=== PATIENT | female | born 1950 | race African-American/Black ===

== ENCOUNTER 2016-05-22 17:57 | Emergency (ER) | payer MEDICARE, OTHER ==
[~2016-05-22] VITALS: Ht 165.1 cm; Wt 63.5 kg
[~2016-05-22 17:57] MED LIST: Pantoprazole Sodium Sesquihydr PO; TRAZ100T2 PO
[2016-05-22 18:15] VITALS: BP 169/82
== END 2016-05-22 21:15 | disposition home or self-care (01) ==
LOC: ER 18:05
DX: M70.21 Olecranon bursitis, right elbow (principal); E11.9 Type 2 diabetes mellitus without complications; I10 Essential (primary) hypertension
CPT/HCPCS: 10060

== ENCOUNTER 2018-02-11 10:47 | Emergency (ER) | payer MEDICARE ==
[~2018-02-11] VITALS: Ht 180.3 cm; Wt 68.0 kg
[2018-02-11 11:52] VITALS: BP 108/100
[2018-02-11] MEDS ORDERED: MEPERIDINE HCL (50 MG/ML) 1 ML VIAL IM ONE (12:45)
[2018-02-11] MEDS ORDERED: PROMETHAZINE HCL 25 MG/ML 1ML IM ONE (12:45)
== END 2018-02-11 13:16 | disposition home or self-care (01) ==
LOC: ER 10:50
DX: M54.5 Low back pain (principal); G89.29 Other chronic pain; E11.9 Type 2 diabetes mellitus without complications; I10 Essential (primary) hypertension; Z90.49 Acquired absence of other specified parts of digestive tract; Z79.899 Other long term (current) drug therapy; Z90.710 Acquired absence of both cervix and uterus
CPT/HCPCS: 96372; 99283; J2175; J2550

== ENCOUNTER 2018-02-21 20:28 | Emergency (ER) | payer MEDICARE, OTHER ==
[~2018-02-21] VITALS: Ht 165.1 cm; Wt 65.8 kg
[2018-02-21 20:33] VITALS: BP 229/107
== END 2018-02-21 23:56 | disposition left against medical advice (07) ==
LOC: EDBD 20:28 → ER 20:31
DX: E11.649 Type 2 diabetes mellitus with hypoglycemia without coma (principal); E78.5 Hyperlipidemia, unspecified; I10 Essential (primary) hypertension; Z90.710 Acquired absence of both cervix and uterus; Z90.89 Acquired absence of other organs; Z53.29 Procedure and treatment not carried out because of patient's decision for other reasons
CPT/HCPCS: 94761

== ENCOUNTER 2018-07-25 15:08 | Emergency (ER) | payer OTHER ==
[~2018-07-25] VITALS: Ht 162.6 cm; Wt 68.0 kg
[2018-07-25 16:12] LABS: Alanine Aminotransferase 21 U/L (13-56); Albumin 4.1 g/dL (3.4-5.0); Anion Gap 12 (5-15); Aspartate Aminotransferase 7 U/L (15-37); BUN/Creatinine Ratio 20.1; Blood Urea Nitrogen 29 mg/dL (7-18); Calcium 8.9 mg/dL (8.5-10.1); Carbon Dioxide 23 mmol/L (21-32); Chloride 97 mmol/L (98-107); GFR African American 47 mL/min; GFR Non-African American 38 mL/min; Potassium 5.1 mmol/L (3.5-5.1); Sodium 132 mmol/L (136-145)
[2018-07-25 16:50] LABS: Alkaline Phosphatase 153 U/L (45-117); Bilirubin, Total 0.4 mg/dL (0.2-1.0); Total Protein 7.9 g/dL (6.4-8.2)
[2018-07-25 16:51] LABS: Glucose 595 mg/dL (74-106)
[2018-07-25 17:13] LABS: White Blood Cell 7.5 10^3/uL (4.4-10.8)
[2018-07-25 17:14] LABS: Lymphocytes % (auto) 17.1 % (10.0-50.0); Neutrophils % (auto) 76.8 % (37.0-80.0)
[2018-07-25 17:15] LABS: Basophils # (auto) 0.7 uL; Basophils % (auto) 0.7 % (0.0-2.0); Eosinophils # (auto) 1.5 uL; Eosinophils % (auto) 1.5 % (0.0-7.0); Hematocrit 41.3 % (36.0-46.0); Hemoglobin 13.7 g/dL (12.2-16.2); Lymphocytes # (auto) 1.3 uL; Mean Corpuscular Hemoglobin 28.5 pg (28.0-32.0); Mean Corpuscular Hgb Conc. 33.1 g/dL (32.0-36.0); Mean Corpuscular Volume 86.2 fL (80.0-100.0); Monocytes # (auto) 0.3 uL; Monocytes % (auto) 3.9 % (0.0-12.0); Neutrophils # (auto) 5.8 uL; Nucleated Red Blood Cells % 0.1 %; Platelet Count (auto) 304 10^3/uL (140-450); Red Blood Cells 4.79 10^6/uL (4.0-5.20); Red Cell Distribution Width 13.2 % (11.8-14.3)
[2018-07-25] MEDS ORDERED: SODIUM CHLORIDE 0.9% 1,000 ML IV ONE (17:45)
[2018-07-25 19:54] LABS: INR 0.91 (0.9-1.15); Partial Thromboplastin Time 24.4 sec (23.78-33.04); Prothrombin Time 9.8 sec (9.27-12.13)
[2018-07-25 20:02] LABS: Alcohol, Urine < 3.0 mg/dL (0-5); Amphetamine Screen, Urine NEGATIVE (NEGATIVE); Barbiturate Scree,Urine NEGATIVE (NEGATIVE); Benzodiazephine Screen, Urine NEGATIVE (NEGATIVE); Cannabinoid Screen, Urine NEGATIVE (NEGATIVE); Cocaine Screen, Urine NEGATIVE (NEGATIVE); Opiate Scree,Urine NEGATIVE (NEGATIVE); Phencyclidine Screen, Urine NEGATIVE (NEGATIVE)
[2018-07-25 20:25] LABS: Urine Bacteria FEW /hpf (None Seen); Urine Blood Negative /uL (Negative); Urine Specific Gravity 1.025 (1.001-1.035); Urine WBC 11 /hpf (0 - 5)
[2018-07-25 21:33] VITALS: BP 138/74
[2018-07-25] MEDS ORDERED: cefTRIAXone 1GM/50ML D5W 50 ML IV ONE (21:45)
== END 2018-07-25 22:29 | disposition home or self-care (01) ==
LOC: EDBD 15:08 → ER 15:11
DX: N39.0 Urinary tract infection, site not specified (principal); E11.65 Type 2 diabetes mellitus with hyperglycemia; G89.29 Other chronic pain; M54.9 Dorsalgia, unspecified; Z90.710 Acquired absence of both cervix and uterus; Z90.89 Acquired absence of other organs
CPT/HCPCS: 36415; 70450; 71045; 80053; 80307; 81001; 82962; 83735; 84484; 85025; 85610; 85730; 93005; 94761; 96361; 96365; 99284; J0696; J7030

== ENCOUNTER 2018-07-30 14:20 | Inpatient (IN) | payer OTHER ==
[~2018-07-30] VITALS: Ht 172.7 cm; Wt 68.8 kg
[2018-07-30 15:21] LABS: Basophils # (auto) 0.1 uL; Basophils % (auto) 0.9 % (0.0-2.0); Eosinophils # (auto) 0.1 uL; Eosinophils % (auto) 1.3 % (0.0-7.0); Hematocrit 40.4 % (36.0-46.0); Hemoglobin 13.3 g/dL (12.2-16.2); Lymphocytes # (auto) 1.3 uL; Lymphocytes % (auto) 17.3 % (10.0-50.0); Mean Corpuscular Hemoglobin 28.8 pg (28.0-32.0); Mean Corpuscular Hgb Conc. 32.9 g/dL (32.0-36.0); Mean Corpuscular Volume 87.6 fL (80.0-100.0); Monocytes # (auto) 0.4 uL; Monocytes % (auto) 4.9 % (0.0-12.0); Neutrophils # (auto) 5.5 uL; Neutrophils % (auto) 75.6 % (37.0-80.0); Nucleated Red Blood Cells % 0.1 %; Platelet Count (auto) 319 10^3/uL (140-450); Red Blood Cells 4.62 10^6/uL (4.0-5.20); Red Cell Distribution Width 13.6 % (11.8-14.3); White Blood Cell 7.3 10^3/uL (4.4-10.8)
[2018-07-30 15:38] LABS: Chloride 99 mmol/L (98-107); Potassium 4.6 mmol/L (3.5-5.1); Sodium 132 mmol/L (136-145)
[2018-07-30 15:44] LABS: Alanine Aminotransferase 20 U/L (13-56); Alkaline Phosphatase 123 U/L (45-117); Anion Gap 10 (5-15); Aspartate Aminotransferase 10 U/L (15-37); BUN/Creatinine Ratio 24.5; Bilirubin, Total 0.4 mg/dL (0.2-1.0); Blood Urea Nitrogen 45 mg/dL (7-18); Calcium 8.9 mg/dL (8.5-10.1); Carbon Dioxide 23 mmol/L (21-32); GFR African American 35 mL/min; GFR Non-African American 29 mL/min; Magnesium 2.8 mg/dL (1.6-2.6); Total Protein 7.9 g/dL (6.4-8.2)
[2018-07-30] MEDS ORDERED: SODIUM CHLORIDE 0.9% 1,000 ML IV ONE ×2 (15:54)
[2018-07-30 15:57] LABS: Glucose 421 mg/dL (74-106)
[2018-07-30] MEDS ORDERED: InsuLIN REG 1unit/0.01ml Soln (100units/ml) IV ONE (16:00)
[2018-07-30 19:59] LABS: Urine Bacteria NONE SEEN /hpf (None Seen); Urine Blood Negative /uL (Negative); Urine Hyaline Cast FEW /lpf (0 - 2); Urine Specific Gravity 1.022 (1.001-1.035); Urine WBC 6 /hpf (0 - 5)
[2018-07-31] MEDS ORDERED: SODIUM CHLORIDE 0.9% 1,000 ML IV SCH ×2 (05:06→14:44)
[2018-07-31] MEDS ORDERED: MORPHINE SULFATE 4 MG/ML SYR/VIAL IV PRN (05:15)
[2018-07-31] MEDS ORDERED: ASPirin-EC 81 mg tab PO ONE (05:15)
[2018-07-31] MEDS ORDERED: ONDANSETRON HCL 4 MG/2 ML VIAL IV PRN (05:15)
[2018-07-31] MEDS ORDERED: NITROGLYCERIN 0.4 MG SL TAB SL PRN (05:15)
[2018-07-31] MEDS ORDERED: DEXTROSE (50%) 50ML SYRG IV PRN ×3 (05:15→19:00)
[2018-07-31] MEDS ORDERED: MORPHINE SULF INJ 2 MG/ML SYRINGE 1ML IV PRN (05:15)
[2018-07-31] MEDS ORDERED: ACCU-CHEK COMFORT CURVE STRIP VI SCH (07:00)
[2018-07-31] MEDS ORDERED: InsuLIN REG 1unit/0.01ml Soln (100units/ml) SC SCH ×2 (07:00→22:00)
--- NOTE | 2018-07-31 08:05 | NUR ---
Telemetry admit from ER AISLINN CALVILLO admitted to Telemetry unit after SBAR received. AAOX3, breathing even unlabored S1, S2, abd soft nontender, twitching noted to left side of her face, c/o of difficulty speech. Patient oriented to Tucker Maddox RN primary RN, unit, room, bed, and unit policies regarding patient care and visiting hours. Patient now on continuous telemetry monitoring, tele box # 9 and telemetry reading on arrival to unit is SINUS RHYTHM 86. Patient placed on bedside oxygen, weighed by bedscale and encouraged to call if they need something. All questions and concerns addressed, patient verbalized understanding. Bed locked in the lowest position,call light within easy reach, will continue to monitor.
--- NOTE | 2018-07-31 08:20 | NUR ---
PT OFF UNIT FOR MRI VIA W/C. NO ACUTE DISTRESS NOTED AT DEPARTURE.
[2018-07-31 08:39] VITALS: BP 163/90
[2018-07-31] MEDS ORDERED: LABETALOL HCL 5 MG/ML ML 20ML VIAL IV ONE (08:45)
[2018-07-31] MEDS: ASPirin-EC 81 mg tab PO SCH (09:21)
[2018-07-31] MEDS: ENOXAPARIN SOD 30 MG/0.3 ML SYRINGE SC SCH (09:22)
[2018-07-31 09:50] LABS: Basophils # (auto) 0.1 uL; Basophils % (auto) 0.9 % (0.0-2.0); Eosinophils # (auto) 0.1 uL; Eosinophils % (auto) 0.9 % (0.0-7.0); Hematocrit 38.9 % (36.0-46.0); Hemoglobin 12.7 g/dL (12.2-16.2); Lymphocytes # (auto) 1.1 uL; Lymphocytes % (auto) 12.8 % (10.0-50.0); Mean Corpuscular Hemoglobin 28.5 pg (28.0-32.0); Mean Corpuscular Hgb Conc. 32.6 g/dL (32.0-36.0); Mean Corpuscular Volume 87.6 fL (80.0-100.0); Monocytes # (auto) 0.3 uL; Monocytes % (auto) 3.7 % (0.0-12.0); Neutrophils # (auto) 6.8 uL; Neutrophils % (auto) 81.7 % (37.0-80.0); Platelet Count (auto) 305 10^3/uL (140-450); Red Blood Cells 4.44 10^6/uL (4.0-5.20); Red Cell Distribution Width 13.4 % (11.8-14.3); White Blood Cell 8.3 10^3/uL (4.4-10.8)
[2018-07-31 10:06] LABS: Potassium 4.5 mmol/L (3.5-5.1)
[2018-07-31 10:24] LABS: BUN/Creatinine Ratio 24.7
[2018-07-31 10:30] VITALS: BP 163/90
[2018-07-31] MEDS ORDERED: InsuLIN R (HUMAN) 100 UNITS in SODIUM CHL 0.9% 99 ML IV SCH ×2 (10:44→15:45)
[2018-07-31 11:06] LABS: Magnesium 2.4 mg/dL (1.6-2.6)
[2018-07-31] MEDS: SODIUM CHLORIDE 0.9% 1,000 ML IV SCH ×3 (11:12→17:13)
--- NOTE | 2018-07-31 11:13 | NUR ---
DR. ROY AT BEDSIDE. STATED PT CAN STAY TELE UNTIL NEXT BMP RESULT.
[2018-07-31 11:18] LABS: Phosphorus 3.4 mg/dL (2.5-4.90)
[2018-07-31 12:06] VITALS: BP 103/54
[2018-07-31] MEDS: ACCU-CHEK COMFORT CURVE STRIP VI SCH ×5 (12:28→20:00)
--- NOTE | 2018-07-31 12:28 | NUR ---
BS 297.
--- NOTE | 2018-07-31 12:40 | NUR ---
NOTIFIED HOUSE SUP MRS. ROJAS THAT DR. ROY WOULD LIKE TO TRANSFER PT TO [facility].
--- NOTE | 2018-07-31 14:05 | NUR ---
INSULIN DRIP Insulin drip 4ml/hr(1:1) is started at 4 ml per hour with blood sugar 314 as per protocol(Algorithm#1) via new IV 22g in right forearm. Continue to monitor and awaits for ICU bed. Will continue to monitor.
[2018-07-31 14:30] LABS: BUN/Creatinine Ratio 26.5; Calcium 8.5 mg/dL (8.5-10.1); Potassium 4.4 mmol/L (3.5-5.1)
--- NOTE | 2018-07-31 15:00 | NUR ---
ANTOINETTE 277 @ 7193.
--- NOTE | 2018-07-31 15:45 | NUR ---
INSULIN DRIP NOW INFUSING @ 3ML/HR. PT RESTING IN BED, NO S/S OF ACUTE DISTRESS. WILL CONTINUE CARE.
[2018-07-31 16:22] VITALS: BP 141/74
--- NOTE | 2018-07-31 16:40 | NUR ---
Dr. Sullivan paged regarding patient c/o of jaw pain, awaiting to call back.
[2018-07-31] MEDS ORDERED: CYCLOBENZAPRINE HCL 10 MG TAB PO ONE (16:45)
--- NOTE | 2018-07-31 16:46 | NUR ---
Received a call from Dr. Sullivan with new order, noted and carried out.
--- NOTE | 2018-07-31 17:00 | NUR ---
BS 185, CHANGE INSULIN DRIP TO 2ML/HR. WILL CONTINUE TO MONITOR.
[2018-07-31 17:33] LABS: BUN/Creatinine Ratio 24.5; Calcium 8.6 mg/dL (8.5-10.1); Potassium 4.4 mmol/L (3.5-5.1)
--- NOTE | 2018-07-31 18:30 | NUR ---
UPDATE DR. ROY 1700 BMP RESULTS. OBTAINED NEW ORDER: STOP INSULIN GTT, GIVE LANTUS 20UNIT SUB X1, START AGGRESSIVE INSULIN SLIDING SCALE, DIABETIC DIET, DOWNGRADE TO TELE, REPEAT BMP AT 1999 CALL MD WITH RESULTS, CONTINUE NS @ 100ML/HR. ORDERS READ BACK AND VERIFIED, WILL PUT IN ORDERS.
[2018-07-31] MEDS ORDERED: INSULIN LANTUS (GLARGINE) 1 /0.01ml (100units/ml) SC ONE (19:00)
--- NOTE | 2018-07-31 19:15 | NUR ---
Opening Shift Note Received report from geno Ceballos RN. Assumed care of patient, awake and alert. No S/S of distress/SOB or pain. Instructed on POC and to call for assist PRN, will continue to monitor for changes Q1hr and PRN. Bed placed in lowest position, bed alarm turned on and call light withn reach.
--- NOTE | 2018-07-31 19:54 | NUR ---
CARE ENDORSED TO KENROY GORDON. RN AWARE DR. ROY REQUESTS RN TO CALL HIM WITH 2000 BMP RESULTS.
[2018-07-31 20:00] VITALS: BP 152/90
[2018-07-31] MEDS: InsuLIN REG 1unit/0.01ml Soln (100units/ml) SC SCH (20:43)
[2018-07-31 21:59] LABS: BUN/Creatinine Ratio 25.6; Calcium 8.5 mg/dL (8.5-10.1); Potassium 4.6 mmol/L (3.5-5.1)
[2018-07-31 22:00] VITALS: BP 152/90
[2018-07-31] MEDS ORDERED: ATORVASTATIN 20 MG TAB PO SCH (22:00)
[2018-08-01] MEDS: ACCU-CHEK COMFORT CURVE STRIP VI SCH ×4 (00:28→11:26)
[2018-08-01] MEDS: InsuLIN REG 1unit/0.01ml Soln (100units/ml) SC SCH ×4 (00:29→11:26)
[2018-08-01] MEDS: SODIUM CHLORIDE 0.9% 1,000 ML IV SCH ×3 (00:30→12:44)
[2018-08-01 05:08] VITALS: BP 102/53
[2018-08-01 07:12] LABS: BUN/Creatinine Ratio 23.7; Potassium 4.1 mmol/L (3.5-5.1)
--- NOTE | 2018-08-01 07:55 | NUR ---
Opening Shift Note Assumed care of patient, awake and alert. No S/S of distress/SOB or pain. Instructed on POC and to call for assist PRN, will continue to monitor for changes Q1hr and PRN.
[2018-08-01 08:00] VITALS: BP 139/80
[2018-08-01 09:00] VITALS: BP 139/80
[2018-08-01] MEDS: ASPirin-EC 81 mg tab PO SCH (09:30)
[2018-08-01] MEDS: ENOXAPARIN SOD 30 MG/0.3 ML SYRINGE SC SCH (09:31)
--- NOTE | 2018-08-01 09:35 | NUR ---
DR. ROY AT BEDSIDE. PLAN OF CARE DISCUSSED WITH PT.
--- NOTE | 2018-08-01 11:25 | NUR ---
CALLED DR. ROY PER DR. MCARTHUR REGARDING EEG OUTPATIENT. DR. ROY STATED HE WILL ARRANGE FOR PT TO HAVE MRI ON FRIDAY. Addendum: 08/01/18 at 1305 by Tucker Maddox RN RN CALL DR. ROY PER DR. BLACK REGARDING EEG OUTPATIENT. DR. ROY STATED HE WILL ARRANGE FOR TP TO HAVE EEG ON FRIDAY.
--- NOTE | 2018-08-01 13:05 | NUR ---
Discharge instructions given as ordered. Encourage to follow up with PCP, Kassandra to arrange per Dr. Sullivan. All questions and concerns addressed. Patient verbalized understanding. Medication reconciliation form completed and copy given to patient. IV removed with catheter intact, pressure dressing applied. Telemetry unit returned to [facility]. Patient taken to vehicle via wheelchair with all personal belongings, accompanied by staff and family member. No distress noted at time of departure.
== END 2018-08-01 13:08 | disposition home or self-care (01) | DRG 682 ==
LOC: EDBD 14:20 → ER 14:20 → TELE 07-31 05:30 → TELE-WESTW 07-31 08:07
PROVIDERS: ADMIT Hospitalist; ATTEND Hospitalist
DX: N17.9 Acute kidney failure, unspecified (principal); E11.10 Type 2 diabetes mellitus with ketoacidosis without coma; G45.9 Transient cerebral ischemic attack, unspecified; I10 Essential (primary) hypertension; I67.2 Cerebral atherosclerosis; Z79.4 Long term (current) use of insulin; Z82.49 Family history of ischemic heart disease and other diseases of the circulatory system; Z83.3 Family history of diabetes mellitus; Z90.710 Acquired absence of both cervix and uterus; Z90.49 Acquired absence of other specified parts of digestive tract
CPT/HCPCS: 36415; 36600; 70450; 70551; 71045; 80048; 80053; 80061; 81001; 82010; 82805; 82962; 83036; 83735; 83930; 84100; 84484; 85025; 87086; 93005; 93306; 94761; 96361; 96374; G0378; J1815

== ENCOUNTER 2018-09-01 17:13 | Emergency (ER) | payer OTHER ==
[~2018-09-01] VITALS: Ht 165.1 cm; Wt 65.8 kg
[2018-09-01 19:10] VITALS: BP 160/68
== END 2018-09-01 20:41 | disposition home or self-care (01) ==
LOC: EDUNIT# 17:13 → EDBD 17:13 → ER 17:18
DX: S30.0XXA Contusion of lower back and pelvis, initial encounter (principal); S70.11XA Contusion of right thigh, initial encounter; G89.4 Chronic pain syndrome; E11.9 Type 2 diabetes mellitus without complications; I10 Essential (primary) hypertension; Z90.710 Acquired absence of both cervix and uterus; W10.8XXA Fall (on) (from) other stairs and steps, initial encounter; Y93.89 Activity, other specified; Y92.254 Theater (live) as the place of occurrence of the external cause; Y99.8 Other external cause status
CPT/HCPCS: 72131; 73130

== ENCOUNTER 2018-10-24 19:27 | Inpatient (IN) | payer OTHER ==
[~2018-10-24] VITALS: Ht 157.5 cm; Wt 63.5 kg
[2018-10-24 22:14] LABS: Basophils # (auto) 0.1 uL; Basophils % (auto) 0.6 % (0.0-2.0); Eosinophils # (auto) 0.2 uL; Eosinophils % (auto) 2.1 % (0.0-7.0); Hematocrit 43.4 % (36.0-46.0); Hemoglobin 14.4 g/dL (12.2-16.2); Lymphocytes % (auto) 9.4 % (10.0-50.0); Mean Corpuscular Hemoglobin 28.3 pg (28.0-32.0); Mean Corpuscular Hgb Conc. 33.2 g/dL (32.0-36.0); Mean Corpuscular Volume 85.4 fL (80.0-100.0); Monocytes # (auto) 0.4 uL; Monocytes % (auto) 3.6 % (0.0-12.0); Neutrophils # (auto) 9.1 uL; Neutrophils % (auto) 84.3 % (37.0-80.0); Platelet Count (auto) 383 10^3/uL (140-450); Red Blood Cells 5.09 10^6/uL (4.0-5.20); Red Cell Distribution Width 12.6 % (11.8-14.3); White Blood Cell 10.8 10^3/uL (4.4-10.8)
[2018-10-24] MEDS ORDERED: InsuLIN REG 1unit/0.01ml Soln (100units/ml) IV ONE (22:15)
[2018-10-24] MEDS ORDERED: SODIUM CHLORIDE 0.9% 1,000 ML IV ONE (22:15)
[2018-10-24 22:24] LABS: INR < 0.93 (0.9-1.15); Partial Thromboplastin Time 22.2 sec (23.64-32.05)
[2018-10-24 22:35] LABS: Chloride 96 mmol/L (98-107); Potassium 5.5 mmol/L (3.5-5.1); Sodium 132 mmol/L (136-145)
[2018-10-24 22:45] LABS: Alanine Aminotransferase 21 U/L (13-56); Albumin 4.1 g/dL (3.4-5.0); Alkaline Phosphatase 211 U/L (45-117); Anion Gap 10 (5-15); Aspartate Aminotransferase 19 U/L (15-37); BUN/Creatinine Ratio 34.3; Bilirubin, Total 0.4 mg/dL (0.2-1.0); Blood Urea Nitrogen 62 mg/dL (7-18); Calcium 9.5 mg/dL (8.5-10.1); Carbon Dioxide 26 mmol/L (21-32); GFR African American 36 mL/min; GFR Non-African American 30 mL/min; Magnesium 2.7 mg/dL (1.6-2.6); Total Protein 8.9 g/dL (6.4-8.2)
[2018-10-24 22:49] LABS: Glucose 613 mg/dL (74-106)
[2018-10-24 23:15] LABS: Urine Bacteria NONE SEEN /hpf (None Seen); Urine Blood 1+ /uL (Negative); Urine Specific Gravity 1.017 (1.001-1.035); Urine WBC 1 /hpf (0 - 5)
[2018-10-24 23:40] LABS: Alcohol, Urine < 3.0 mg/dL (0-5); Amphetamine Screen, Urine NEGATIVE (NEGATIVE); Barbiturate Scree,Urine NEGATIVE (NEGATIVE); Benzodiazephine Screen, Urine NEGATIVE (NEGATIVE); Cannabinoid Screen, Urine NEGATIVE (NEGATIVE); Cocaine Screen, Urine NEGATIVE (NEGATIVE); Opiate Scree,Urine NEGATIVE (NEGATIVE); Phencyclidine Screen, Urine NEGATIVE (NEGATIVE)
[2018-10-25] MEDS ORDERED: D5W/SOD CHLO 0.9% 1,000 ML IV ONE ×2 (00:15)
[2018-10-25] MEDS ORDERED: SODIUM CHLORIDE 0.9% 1,000 ML IV SCH ×3 (00:22→04:00)
[2018-10-25] MEDS ORDERED: InsuLIN R (HUMAN) 100 UNITS in SODIUM CHL 0.9% 99 ML IV SCH (00:22)
[2018-10-25] MEDS ORDERED: DEXTROSE (50%) 50ML SYRG IV PRN ×2 (00:30→03:30)
[2018-10-25] MEDS: D5W/SOD CHLO 0.9% 1,000 ML IV SCH ×3 (00:30→08:30)
[2018-10-25] MEDS ORDERED: InsuLIN REG 1unit/0.01ml Soln (100units/ml) ONE (01:17)
[2018-10-25] MEDS: ACCU-CHEK COMFORT CURVE STRIP VI SCH ×11 (01:41→23:50)
[2018-10-25 02:20] LABS: Calcium 8.6 mg/dL (8.5-10.1); Potassium 4.4 mmol/L (3.5-5.1)
[2018-10-25 02:22] LABS: BUN/Creatinine Ratio 38.8
[2018-10-25] MEDS ORDERED: MORPHINE SULF INJ 2 MG/ML SYRINGE 1ML IV PRN (03:30)
[2018-10-25] MEDS ORDERED: NITROGLYCERIN 0.4 MG SL TAB SL PRN (03:30)
[2018-10-25 04:28] LABS: Basophils # (auto) 0.1 uL; Basophils % (auto) 0.8 % (0.0-2.0); Eosinophils # (auto) 0.3 uL; Eosinophils % (auto) 4.1 % (0.0-7.0); Hematocrit 34.6 % (36.0-46.0); Hemoglobin 11.6 g/dL (12.2-16.2); Lymphocytes # (auto) 2.1 uL; Lymphocytes % (auto) 24.4 % (10.0-50.0); Mean Corpuscular Hemoglobin 28.5 pg (28.0-32.0); Mean Corpuscular Hgb Conc. 33.6 g/dL (32.0-36.0); Mean Corpuscular Volume 84.8 fL (80.0-100.0); Monocytes # (auto) 0.4 uL; Neutrophils # (auto) 5.6 uL; Neutrophils % (auto) 65.7 % (37.0-80.0); Platelet Count (auto) 334 10^3/uL (140-450); Red Blood Cells 4.08 10^6/uL (4.0-5.20); Red Cell Distribution Width 12.8 % (11.8-14.3); White Blood Cell 8.6 10^3/uL (4.4-10.8)
[2018-10-25 05:04] LABS: Anion Gap 14 (5-15); Calcium 8.6 mg/dL (8.5-10.1); Carbon Dioxide 21 mmol/L (21-32); Chloride 109 mmol/L (98-107); GFR African American 46 mL/min; GFR Non-African American 38 mL/min; Glucose 306 mg/dL (74-106); Potassium 3.8 mmol/L (3.5-5.1); Sodium 144 mmol/L (136-145)
[2018-10-25 05:06] LABS: BUN/Creatinine Ratio 36.3; Blood Urea Nitrogen 53 mg/dL (7-18)
[2018-10-25] MEDS: InsuLIN REG 1unit/0.01ml Soln (100units/ml) SC SCH ×4 (06:00→23:51)
[2018-10-25 07:12] LABS: BUN/Creatinine Ratio 39.8; Calcium 8.9 mg/dL (8.5-10.1); Potassium 3.7 mmol/L (3.5-5.1)
--- NOTE | 2018-10-25 07:45 | NUR ---
Telemetry admit from ER AISLINN CALVILLO admitted to Telemetry unit after SBAR received. Patient oriented to Marnie aldana RN, unit, room, bed, and unit policies regarding patient care and visiting hours. Patient now on continuous telemetry monitoring, tele box # 34 and telemetry reading on arrival to unit is SR in the 90's. Patient weighed by bedscale and encouraged to call if they need something. All questions and concerns addressed, patient verbalized understanding.
[2018-10-25 09:00] VITALS: BP 92/59
[2018-10-25] MEDS: PANTOPRAZOLE 40 MG/10 ML VIAL INJ IV SCH (10:00)
[2018-10-25] MEDS: ENOXAPARIN SOD 30 MG/0.3 ML SYRINGE SC SCH (10:20)
--- NOTE | 2018-10-25 10:39 | NUR ---
SPOKE TO DR ROY, ORDERS RECEIVED, WILL PLACE AND CARRY OUT.
[2018-10-25] MEDS: SOD CHL 0.45% 1,000 ML IV SCH ×2 (11:02→15:43)
[2018-10-25 13:00] VITALS: BP 163/83
[2018-10-25 14:35] LABS: BUN/Creatinine Ratio 36.7; Calcium 8.6 mg/dL (8.5-10.1); Potassium 4.5 mmol/L (3.5-5.1)
[2018-10-25 17:00] VITALS: BP 160/89
--- NOTE | 2018-10-25 17:56 | NUR ---
ELEVATED BLOOD PRESSURE. SPOKE WITH HERB COUNSELOR HOSPITALIST. ORDERS RECEIVED, WILL PLACE AND CARRY OUT.
[2018-10-25] MEDS: LABETALOL HCL 5 MG/ML ML 20ML VIAL IV PRN (18:45)
[2018-10-25 19:30] LABS: Calcium 8.6 mg/dL (8.5-10.1); Potassium 3.9 mmol/L (3.5-5.1)
[2018-10-25 19:41] LABS: BUN/Creatinine Ratio 36.4
--- NOTE | 2018-10-25 20:00 | NUR ---
OPENING NOTE RECEIVED REPORT FROM HEAVEN RN. ASSUMING ROLE OF CARE OF PATIENT AT THIS TIME. FAMILY AT BEDSIDE AND PATIENT IS CRYING AT THIS TIME. PATIENT IS NONVERBAL AND UNABLE TO OBTAIN INFORMATION AT THIS TIME. EDUCATED PATIENT AND FAMILY OF CURRENT PLAN OF CARE. FAMILY VERBALIZED UNDERSTANDING. ATTEMPTED TO REORIENT PATIENT BUT UNSUCCESSFUL. WILL ATTEMPT AT A LATER TIME. BED LOWERED, CALL LIGHT WITHIN REACH, AND PATIENT WILL BE ROUNDED ON EVERY HOUR AND NEEDED.
--- NOTE | 2018-10-25 20:00 | NUR ---
PATIENT GIVEN PAIN MEDICINE PATIENT CRYING AND BP REMAINS ELEVATED AT 164/119. GAVE PATIENT PAIN MEDICINE AND BP RECHECKED AND BP REMAINS AT 159/74. PATIENT NO LONGER CRYING AND RESTING COMFORTABLY. WILL CONTINUE TO MONITOR.
[2018-10-25] MEDS: ONDANSETRON HCL 4 MG/2 ML VIAL IV PRN (20:06)
[2018-10-25] MEDS: MORPHINE SULFATE 4 MG/ML SYR/VIAL IV PRN (20:07)
[2018-10-25 21:51] VITALS: BP 159/74
[2018-10-26] VITALS (11 sets, daily range): BP systolic 133–205; BP diastolic 77–102
[2018-10-26] MEDS: SOD CHL 0.45% 1,000 ML IV SCH ×4 (00:05→20:05)
[2018-10-26] MEDS: LABETALOL HCL 5 MG/ML ML 20ML VIAL IV PRN ×2 (00:59→17:02)
--- NOTE | 2018-10-26 03:00 | NUR ---
ROUNDED ON PATIENT AT THIS TIME PATIENT APPEARS MORE ALERT AND ORIENTED AND USING FULL SENTENCES. SPEECH IS STILL GARBLED AND BROKEN BUT SENTENCES ARE COMPLETE THOUGHTS. PATIENT REQUESTING JUICE AT THIS TIME. PATIENT GIVEN JUICE AND PATIENT IS RESTING COMFORTABLY AT BEDSIDE. WILL CONTINUE TO MONITOR.
[2018-10-26] MEDS: MORPHINE SULFATE 4 MG/ML SYR/VIAL IV PRN ×2 (05:41→16:12)
[2018-10-26] MEDS: ACCU-CHEK COMFORT CURVE STRIP VI SCH ×4 (06:05→23:52)
[2018-10-26] MEDS: InsuLIN REG 1unit/0.01ml Soln (100units/ml) SC SCH ×4 (06:05→23:52)
[2018-10-26 06:53] LABS: Basophils # (auto) 0.1 uL; Basophils % (auto) 0.8 % (0.0-2.0); Eosinophils # (auto) 0.3 uL; Eosinophils % (auto) 3.8 % (0.0-7.0); Hematocrit 35.1 % (36.0-46.0); Hemoglobin 11.7 g/dL (12.2-16.2); Lymphocytes # (auto) 2.3 uL; Lymphocytes % (auto) 29.7 % (10.0-50.0); Mean Corpuscular Hemoglobin 28.5 pg (28.0-32.0); Mean Corpuscular Hgb Conc. 33.4 g/dL (32.0-36.0); Mean Corpuscular Volume 85.3 fL (80.0-100.0); Monocytes # (auto) 0.3 uL; Monocytes % (auto) 4.3 % (0.0-12.0); Neutrophils # (auto) 4.8 uL; Neutrophils % (auto) 61.4 % (37.0-80.0); Nucleated Red Blood Cells % 0.1 %; Platelet Count (auto) 326 10^3/uL (140-450); Red Blood Cells 4.12 10^6/uL (4.0-5.20); Red Cell Distribution Width 12.7 % (11.8-14.3); White Blood Cell 7.8 10^3/uL (4.4-10.8)
[2018-10-26 07:07] LABS: BUN/Creatinine Ratio 28.1; Calcium 8.7 mg/dL (8.5-10.1); Potassium 4.4 mmol/L (3.5-5.1)
[2018-10-26] MEDS: PANTOPRAZOLE 40 MG/10 ML VIAL INJ IV SCH (10:00)
[2018-10-26] MEDS: ENOXAPARIN SOD 30 MG/0.3 ML SYRINGE SC SCH (10:05)
[2018-10-26] MEDS: ONDANSETRON HCL 4 MG/2 ML VIAL IV PRN ×2 (13:30→16:41)
--- NOTE | 2018-10-26 19:49 | NUR ---
OPENING NOTE RECEIVED REPORT FROM DAYSHIFT RN. ASSUMING ROLE OF CARE OF PATIENT AT THIS TIME. PATIENT SHOWING NO SIGN OF DISTRESS, SHORTNESS OF BREATH, AND PATIENT DENIES ANY PAIN AT THIS TIME. PATIENT APPEARING MORE ALERT AND ORIENTED AT THIS TIME. SPEECH IS UNCLEAR BUT PATIENT IS SPEAKING IN FULL COMPLETE SENTENCES. PATIENT EDUCATED ON PLAN OF CARE FOR THE NIGHT AND PATIENT VERBALIZED UNDERSTANDING. BED LOWERED, CALL LIGHT WITHIN REACH, AND PATIENT WILL BE ROUNDED ON EVERY HOUR AND NEEDED.
[2018-10-27] MEDS: SOD CHL 0.45% 1,000 ML IV SCH ×2 (02:45→09:25)
[2018-10-27 05:00] VITALS: BP 160/82
[2018-10-27] MEDS: LABETALOL HCL 5 MG/ML ML 20ML VIAL IV PRN (05:40)
[2018-10-27] MEDS: ACCU-CHEK COMFORT CURVE STRIP VI SCH ×2 (06:16→11:32)
[2018-10-27] MEDS: InsuLIN REG 1unit/0.01ml Soln (100units/ml) SC SCH ×2 (06:22→11:32)
[2018-10-27 08:00] VITALS: BP 151/73
[2018-10-27 09:00] VITALS: BP 151/79
[2018-10-27] MEDS: PANTOPRAZOLE 40 MG/10 ML VIAL INJ IV SCH (10:00)
[2018-10-27] MEDS: ENOXAPARIN SOD 30 MG/0.3 ML SYRINGE SC SCH (11:09)
[2018-10-27 13:00] VITALS: BP 138/71
--- NOTE | 2018-10-27 15:26 | NUR ---
PATIENT DISCHARGED HOME WITH FAMILY. ALL IV ACCESS DISCONTINUED. TELEMETRY BOX REMOVED AND RETURNED TO [facility]. ALL DISCHARGE INSTRUCTIONS GIVEN. ALL DISCHARGE PAPERWORK SIGNED. WILLIS CATHETER REMOVED
== END 2018-10-27 15:30 | disposition home health service (06) | DRG 637 ==
LOC: EDBD 19:27 → ER 19:27 → TELE 19:28 → TELE-WESTW 10-25 08:22
PROVIDERS: ADMIT Hospitalist; ATTEND Hospitalist
DX: E11.10 Type 2 diabetes mellitus with ketoacidosis without coma (principal); G93.41 Metabolic encephalopathy; N17.9 Acute kidney failure, unspecified; E86.0 Dehydration; I70.0 Atherosclerosis of aorta; I10 Essential (primary) hypertension; W18.39XA Other fall on same level, initial encounter; E11.40 Type 2 diabetes mellitus with diabetic neuropathy, unspecified; Z90.710 Acquired absence of both cervix and uterus; Z90.49 Acquired absence of other specified parts of digestive tract; Z83.3 Family history of diabetes mellitus; Z82.49 Family history of ischemic heart disease and other diseases of the circulatory system; Y93.89 Activity, other specified; Y92.89 Other specified places as the place of occurrence of the external cause; Y99.8 Other external cause status; Z79.4 Long term (current) use of insulin; Z79.899 Other long term (current) drug therapy
CPT/HCPCS: 36415; 36600; 70450; 71045; 80048; 80053; 80307; 80320; 81001; 82010; 82805; 82962; 83036; 83735; 83880; 83930; 84100; 84443; 84484; 85025; 85379; 85610; 85730; 93005; 96361; 96365; 96366; 96375; G0378; J1815; J2405; J7042

== ENCOUNTER 2018-12-24 09:39 | Inpatient (IN) | payer OTHER ==
[~2018-12-24] VITALS: Ht 152.4 cm; Wt 63.5 kg
[2018-12-24 10:57] LABS: Basophils # (auto) 0.1 uL; Basophils % (auto) 0.9 % (0.0-2.0); Eosinophils # (auto) 0.2 uL; Eosinophils % (auto) 3.2 % (0.0-7.0); Hematocrit 33.2 % (36.0-46.0); Lymphocytes # (auto) 1.2 uL; Mean Corpuscular Hgb Conc. 33.3 g/dL (32.0-36.0); Monocytes # (auto) 0.4 uL; Monocytes % (auto) 5.6 % (0.0-12.0); Neutrophils # (auto) 4.7 uL; Neutrophils % (auto) 72.3 % (37.0-80.0); Nucleated Red Blood Cells % 0.1 %; Platelet Count (auto) 357 10^3/uL (140-450); Red Blood Cells 3.81 10^6/uL (4.0-5.20); White Blood Cell 6.5 10^3/uL (4.4-10.8)
[2018-12-24] MEDS ORDERED: DEXTROSE (50%) 50ML SYRG IV ONE (11:00)
[2018-12-24 11:15] LABS: Albumin 3.4 g/dL (3.4-5.0); Calcium 9.1 mg/dL (8.5-10.1); Potassium 3.9 mmol/L (3.5-5.1)
[2018-12-24 11:20] LABS: BUN/Creatinine Ratio 21.5; Bilirubin, Total 0.2 mg/dL (0.2-1.0); Total Protein 7.4 g/dL (6.4-8.2)
[2018-12-24] MEDS ORDERED: D5W/SOD CHL 0.45% 1,000 ML IV ONE (13:00)
[2018-12-24 13:44] LABS: Urine Bacteria FEW /hpf (None Seen); Urine Blood Negative /uL (Negative); Urine Budding Yeast MODERATE /hpf (None Seen); Urine Specific Gravity 1.006 (1.001-1.035); Urine WBC 25 /hpf (0 - 5)
[2018-12-24] MEDS ORDERED: MORPHINE SULF INJ 2 MG/ML SYRINGE 1ML IV PRN (16:15)
[2018-12-24] MEDS ORDERED: ONDANSETRON HCL 4 MG/2 ML VIAL IV PRN (16:15)
[2018-12-24] MEDS ORDERED: NITROGLYCERIN 0.4 MG SL TAB SL PRN (16:15)
[2018-12-24] MEDS: D5W/SOD CHL 0.45% 1,000 ML IV SCH ×2 (16:23→18:42)
[2018-12-24] MEDS ORDERED: CEFTRIAXONE SODIUM 2 GM in D5W 5% 50 ML IV SCH (17:00)
--- NOTE | 2018-12-24 17:50 | NUR ---
Telemetry admit from ER AISLINN CALVILLO admitted to Telemetry unit after SBAR received. Patient oriented to BERNARDA HARVEY, primary RN, unit, room, bed, and unit policies regarding patient care and visiting hours. Patient now on continuous telemetry monitoring, tele box # 67 and telemetry reading on arrival to unit is . Patient placed on bedside oxygen, weighed by bed scale and encouraged to call if they need something. All questions and concerns addressed, patient verbalized understanding.
--- NOTE | 2018-12-24 17:58 | NUR ---
Spoke to Dr. Clive gilmore regarding BS scale. Received new order, noted and carried it out.
--- NOTE | 2018-12-24 18:12 | NUR ---
Dr. Duffy paged regarding BS 515. Awaiting to call back.
[2018-12-24] MEDS ORDERED: DEXTROSE (50%) 50ML SYRG IV PRN ×2 (18:15→19:15)
--- NOTE | 2018-12-24 18:15 | NUR ---
Photos taken to right 2 toe.
--- NOTE | 2018-12-24 18:15 | NUR ---
Received a call from Dr. Duffy to stop fluid and recheck in 1 hour.
[2018-12-24] MEDS: HYDROcodone-ACET 5/325MG TAB PO PRN (18:17)
--- NOTE | 2018-12-24 19:03 | NUR ---
Spoke to Dr. Duffy regarding BP 195/86 HR 104 RR 28 and BS 513, received new orders, noted and carried it out.
[2018-12-24] MEDS ORDERED: hydrALAZINE HCL 20 MG/ML VL IV PRN (19:15)
--- NOTE | 2018-12-24 19:20 | NUR ---
Opening Shift Note Report received from day shift RN. Assumed care of patient. Patient laying in bed awake and alert x4. No S/S of distress/SOB noted. Bed locked and in the lowest position. Call light left within reach. Instructed on POC and to call for assist PRN, will continue to monitor for changes Q1hr and PRN.
[2018-12-24] MEDS ORDERED: ACCU-CHEK COMFORT CURVE STRIP VI SCH (20:00)
[2018-12-24] MEDS ORDERED: InsuLIN REG 1unit/0.01ml Soln (100units/ml) SC SCH (20:00)
--- NOTE | 2018-12-24 20:00 | NUR ---
PAGED DR. GIBSON REGARDING BLOOD GLUCOSE LEVEL OF 499, NO NEW ORDERS RECEIVED.
[2018-12-24] MEDS: ACCU-CHEK COMFORT CURVE STRIP VI SCH ×2 (20:25→23:47)
[2018-12-24] MEDS: InsuLIN REG 1unit/0.01ml Soln (100units/ml) SC SCH ×2 (20:26→23:47)
[2018-12-24] MEDS: ALPRAZolam 0.25 MG TAB PO SCH (22:04)
[2018-12-24] MEDS: GABAPENTIN 300 MG CAP PO SCH (22:04)
[2018-12-24 23:17] VITALS: BP 190/88
--- NOTE | 2018-12-25 | NUR ---
BLOOD GLUCOSE AND BP REASSESSMENT BLOOD GLUCOSE 165 BLOOD PRESSURE REASSESSMENT 150/78
[2018-12-25] MEDS: HYDROcodone-ACET 5/325MG TAB PO PRN ×2 (00:38→10:36)
[2018-12-25] MEDS: InsuLIN REG 1unit/0.01ml Soln (100units/ml) SC SCH ×4 (04:00→15:46)
--- NOTE | 2018-12-25 04:00 | NUR ---
LOW GLUCOSE LEVEL PATIENT'S BLOOD GLUCOSE LEVEL 43, PATIENT WAS ALERT AND ORIENTATED AND ASYMPTOMATIC GAVE PATIENT [address] GIBSON'S OFFICE WAS PAGED, NO NEW ORDERS GIVEN.
--- NOTE | 2018-12-25 04:20 | NUR ---
BLOOD GLUCOSE REASSESSMENT AFTER INTERVENTION, BLOOD GLUCOSE LEVELS 89. WILL CONTINUE TO MONITOR PATIENT.
[2018-12-25] MEDS: ACCU-CHEK COMFORT CURVE STRIP VI SCH ×4 (04:29→15:47)
[2018-12-25 05:13] LABS: Basophils # (auto) 0.1 uL; Basophils % (auto) 1.3 % (0.0-2.0); Eosinophils # (auto) 0.3 uL; Eosinophils % (auto) 3.5 % (0.0-7.0); Hematocrit 30.7 % (36.0-46.0); Hemoglobin 10.6 g/dL (12.2-16.2); Lymphocytes % (auto) 21.5 % (10.0-50.0); Mean Corpuscular Hemoglobin 29.7 pg (28.0-32.0); Mean Corpuscular Hgb Conc. 34.5 g/dL (32.0-36.0); Mean Corpuscular Volume 86.3 fL (80.0-100.0); Monocytes # (auto) 0.6 uL; Neutrophils # (auto) 6.3 uL; Neutrophils % (auto) 67.7 % (37.0-80.0); Platelet Count (auto) 378 10^3/uL (140-450); Red Blood Cells 3.56 10^6/uL (4.0-5.20); Red Cell Distribution Width 14.1 % (11.8-14.3); White Blood Cell 9.3 10^3/uL (4.4-10.8)
[2018-12-25 05:20] VITALS: BP 102/52
[2018-12-25 05:27] LABS: BUN/Creatinine Ratio 21.2; Calcium 8.7 mg/dL (8.5-10.1); Potassium 3.9 mmol/L (3.5-5.1)
[2018-12-25] MEDS: GABAPENTIN 300 MG CAP PO SCH ×2 (06:32→14:32)
--- NOTE | 2018-12-25 08:36 | NUR ---
Opening Shift Note Assumed care of patient, awake and alert. Respiratory even and unlabored. No S/S of distress/SOB or pain. Skin is warm and dry to touch, no s/s of hyperglycemia or hypoglycemia noted. Instructed on POC and to call for assist PRN, will continue to monitor for changes Q1hr and PRN.
[2018-12-25 09:00] VITALS: BP 141/71
[2018-12-25] MEDS: ALPRAZolam 0.25 MG TAB PO SCH (09:18)
[2018-12-25] MEDS ORDERED: BENAZEPRIL HCL 10 MG TAB PO SCH (10:00)
[2018-12-25] MEDS ORDERED: ENOXAPARIN SOD 40 MG/0.4 ML SYRINGE SC SCH (10:00)
--- NOTE | 2018-12-25 14:49 | NUR ---
BS 51 , juice given , recheck in 30 mins , BS 87. Notified Dr. Anderson received new orders, noted and carried it out.
--- NOTE | 2018-12-25 15:08 | NUR ---
FAXED TO [facility] PER DR. GIBSON REQUESTED.
--- NOTE | 2018-12-25 15:50 | NUR ---
Written mild sliding scale give to patient, patient verbalized understanding.
--- NOTE | 2018-12-25 15:55 | NUR ---
Discharge instructions given as ordered. Encourage to follow up with PMD (DISCHARGE HOME. FOLLOW UP WITH DR GRIGGS, ON 01/12/19 @4:PM, , [address]ESS [id number] [place]. ACTIVITY TOLERATED. DIABETIC DIET/ [id number] CALORIE DIET. WOUND CARE FOR PRESSURE ULCER. NEEDS REFERRAL FOR ENDOCRINOLOGY IN THE NEXT 1-2 WEEKS. USE MODERATE DOSE SLIDING SCALE TO BE USED AND HS ON DC. PATIENT TO RETURN TO IN CASE OF ANY FEVERS, [id number] NAUSEA, VOMITING CHEST PAIN ,SHORTNESS OF BREATH, OR ANY OTHER CONCERNS OR QUESTIONS.) as instructed. All questions and concerns addressed. Patient verbalized understanding. Medication reconciliation form completed and copy given to patient. IV removed with catheter intact, pressure dressing applied. Telemetry unit returned to ICU. Patient taken to vehicle via wheelchair with all personal belongings, accompanied by staff and family member. No distress noted at time of departure.
== END 2018-12-25 15:55 | disposition home or self-care (01) | DRG 638 ==
LOC: ER 09:39 → EDBD 09:39 → TELE 09:40 → TELE-WESTW 18:08
PROVIDERS: ADMIT Hospitalist; ATTEND Hospitalist
DX: E11.649 Type 2 diabetes mellitus with hypoglycemia without coma (principal); N39.0 Urinary tract infection, site not specified; E11.40 Type 2 diabetes mellitus with diabetic neuropathy, unspecified; I70.0 Atherosclerosis of aorta; I10 Essential (primary) hypertension; Z79.4 Long term (current) use of insulin; Z90.710 Acquired absence of both cervix and uterus; Z91.19 Patient's noncompliance with other medical treatment and regimen; Z90.49 Acquired absence of other specified parts of digestive tract; L89.892 Pressure ulcer of other site, stage 2
CPT/HCPCS: 36415; 71045; 73718; 80048; 80053; 81001; 82962; 85025; 87086; 94761; 96374; 99291; G0378; J0696; J1815; J7060

== ENCOUNTER 2019-01-07 12:44 | Emergency (ER) | payer OTHER ==
[~2019-01-07] VITALS: Ht 152.4 cm; Wt 59.0 kg
[2019-01-07] MEDS ORDERED: SODIUM CHLORIDE 0.9% 1,000 ML IV ONE (12:51)
[2019-01-07] MEDS ORDERED: LORazepam 2MG/ML-1ML VIAL IM ONE (13:15)
[2019-01-07] MEDS ORDERED: LORazepam 2MG/ML-1ML VIAL IV ONE (13:30)
[2019-01-07] MEDS ORDERED: D5W 5% 1,000 ML IV ONE (13:30)
[2019-01-07 13:39] LABS: Basophils # (auto) 0.1 uL; Basophils % (auto) 0.6 % (0.0-2.0); Eosinophils # (auto) 0.3 uL; Eosinophils % (auto) 1.5 % (0.0-7.0); Hematocrit 36.2 % (36.0-46.0); Hemoglobin 11.7 g/dL (12.2-16.2); Lymphocytes # (auto) 1.4 uL; Lymphocytes % (auto) 7.5 % (10.0-50.0); Mean Corpuscular Hemoglobin 28.4 pg (28.0-32.0); Mean Corpuscular Hgb Conc. 32.4 g/dL (32.0-36.0); Mean Corpuscular Volume 87.5 fL (80.0-100.0); Monocytes % (auto) 5.4 % (0.0-12.0); Neutrophils # (auto) 15.8 uL; Platelet Count (auto) 389 10^3/uL (140-450); Red Blood Cells 4.14 10^6/uL (4.0-5.20); Red Cell Distribution Width 14.2 % (11.8-14.3); White Blood Cell 18.6 10^3/uL (4.4-10.8)
[2019-01-07 13:57] LABS: Alanine Aminotransferase 26 U/L (13-56); Anion Gap 8 (5-15); Aspartate Aminotransferase 21 U/L (15-37); BUN/Creatinine Ratio 23.9; Blood Urea Nitrogen 26 mg/dL (7-18); Calcium 9.3 mg/dL (8.5-10.1); Carbon Dioxide 26 mmol/L (21-32); Chloride 106 mmol/L (98-107); GFR African American 64 mL/min; GFR Non-African American 53 mL/min; Glucose 173 mg/dL (74-106); Potassium 3.7 mmol/L (3.5-5.1); Sodium 140 mmol/L (136-145)
[2019-01-07 14:01] LABS: Alkaline Phosphatase 105 U/L (45-117); Bilirubin, Total 0.3 mg/dL (0.2-1.0); Total Protein 8.1 g/dL (6.4-8.2)
[2019-01-07 15:27] LABS: Urine Bacteria FEW /hpf (None Seen); Urine Blood TRACE /uL (Negative); Urine Budding Yeast MODERATE /hpf (None Seen); Urine WBC 139 /hpf (0 - 5); Urine WBC Clumps PRESENT /hpf (None Seen)
[2019-01-07] MEDS ORDERED: cefTRIAXone 1GM/50ML D5W 50 ML IV ONE (16:30)
[2019-01-07] MEDS ORDERED: cefTRIAXone SOD 1,000 MG VL ONE (18:35)
== END 2019-01-07 16:25 | disposition home or self-care (01) ==
LOC: ER 12:44 → EDBD 12:44 → ER 16:25
DX: E11.649 Type 2 diabetes mellitus with hypoglycemia without coma (principal); N39.0 Urinary tract infection, site not specified; I10 Essential (primary) hypertension; Z90.49 Acquired absence of other specified parts of digestive tract
CPT/HCPCS: 36415; 71045; 80053; 81001; 82962; 84484; 85025; 96361; 96365; 96375; 99284; J0696; J2060

== ENCOUNTER 2019-02-04 14:28 | Emergency (ER) | payer OTHER ==
[~2019-02-04] VITALS: Ht 157.5 cm; Wt 63.5 kg
[2019-02-04 15:18] LABS: Basophils # (auto) 0.1 uL; Basophils % (auto) 0.5 % (0.0-2.0); Eosinophils # (auto) 0.1 uL; Eosinophils % (auto) 1.1 % (0.0-7.0); Hematocrit 36.2 % (36.0-46.0); Lymphocytes # (auto) 0.8 uL; Lymphocytes % (auto) 7.6 % (10.0-50.0); Mean Corpuscular Hemoglobin 28.7 pg (28.0-32.0); Mean Corpuscular Hgb Conc. 33.1 g/dL (32.0-36.0); Mean Corpuscular Volume 86.6 fL (80.0-100.0); Monocytes # (auto) 0.5 uL; Monocytes % (auto) 4.9 % (0.0-12.0); Neutrophils # (auto) 9.3 uL; Neutrophils % (auto) 85.9 % (37.0-80.0); Nucleated Red Blood Cells % 0.1 %; Platelet Count (auto) 277 10^3/uL (140-450); Red Blood Cells 4.18 10^6/uL (4.0-5.20); Red Cell Distribution Width 13.5 % (11.8-14.3); White Blood Cell 10.8 10^3/uL (4.4-10.8)
[2019-02-04 15:38] LABS: Calcium 8.9 mg/dL (8.5-10.1)
[2019-02-04 15:44] LABS: Albumin 3.6 g/dL (3.4-5.0); BUN/Creatinine Ratio 31.1; Bilirubin, Total 0.3 mg/dL (0.2-1.0); Total Protein 7.1 g/dL (6.4-8.2)
[2019-02-04] MEDS ORDERED: SODIUM CHLORIDE 0.9% 1,000 ML IV ONE (17:30)
[2019-02-04 18:08] VITALS: BP 176/73
[2019-02-04 18:10] LABS: Urine Bacteria NONE SEEN /hpf (None Seen); Urine Blood TRACE /uL (Negative); Urine Specific Gravity 1.008 (1.001-1.035); Urine WBC 115 /hpf (0 - 5); Urine WBC Clumps PRESENT /hpf (None Seen)
[2019-02-04] MEDS ORDERED: cefTRIAXone 1GM/50ML D5W 50 ML IV ONE (18:15)
== END 2019-02-04 19:22 | disposition home or self-care (01) ==
LOC: EDUNIT# 14:28 → EDBD 14:28 → ER 14:34
DX: N39.0 Urinary tract infection, site not specified (principal); E11.649 Type 2 diabetes mellitus with hypoglycemia without coma; I10 Essential (primary) hypertension; Z90.49 Acquired absence of other specified parts of digestive tract; Z90.710 Acquired absence of both cervix and uterus; Z79.899 Other long term (current) drug therapy
CPT/HCPCS: 36415; 71045; 80053; 81001; 82150; 82962; 83690; 83735; 85025; 96361; 96365; 99284; J0696; J7030

== ENCOUNTER 2019-02-28 06:15 | Emergency (ER) | payer OTHER ==
[~2019-02-28] VITALS: Ht 172.7 cm; Wt 66.2 kg
[2019-02-28 07:30] LABS: Basophils # (auto) 0.1 uL; Basophils % (auto) 0.7 % (0.0-2.0); Eosinophils # (auto) 0 uL; Eosinophils % (auto) 0.3 % (0.0-7.0); Hematocrit 26.5 % (36.0-46.0); Hemoglobin 8.8 g/dL (12.2-16.2); Lymphocytes # (auto) 0.8 uL; Lymphocytes % (auto) 10.8 % (10.0-50.0); Mean Corpuscular Hemoglobin 29.4 pg (28.0-32.0); Monocytes # (auto) 0.7 uL; Monocytes % (auto) 9.4 % (0.0-12.0); Neutrophils # (auto) 5.5 uL; Neutrophils % (auto) 78.8 % (37.0-80.0); Platelet Count (auto) 391 10^3/uL (140-450); Red Blood Cells 2.98 10^6/uL (4.0-5.20); Red Cell Distribution Width 13.7 % (11.8-14.3)
[2019-02-28] MEDS ORDERED: SODIUM CHLORIDE 0.9% 1,000 ML IV ONE ×2 (07:34→12:15)
[2019-02-28] MEDS ORDERED: SODIUM CHLORIDE 0.9% 500 ML IV ONE (07:34)
[2019-02-28 07:37] LABS: Urine Bacteria NONE SEEN /hpf (None Seen); Urine Blood 1+ /uL (Negative); Urine Budding Yeast LOADED /hpf (None Seen); Urine Mucus FEW (None Seen); Urine Specific Gravity 1.016 (1.001-1.035); Urine WBC 130 /hpf (0 - 5)
[2019-02-28 07:47] LABS: Albumin 2.1 g/dL (3.4-5.0); BUN/Creatinine Ratio 15.2; Magnesium 1.6 mg/dL (1.6-2.6); Potassium 3.6 mmol/L (3.5-5.1)
[2019-02-28 07:50] LABS: Bilirubin, Total 0.4 mg/dL (0.2-1.0); Total Protein 6.3 g/dL (6.4-8.2)
[2019-02-28] MEDS ORDERED: cefTRIAXone 1GM/50ML D5W 50 ML IV ONE (09:00)
[2019-02-28] MEDS ORDERED: FLUCONAZOLE 200MG/100ML 100 ML IV ONE (09:00)
[2019-02-28] MEDS ORDERED: InsuLIN REG 1unit/0.01ml Soln (100units/ml) IV ONE (09:15)
[2019-02-28] MEDS ORDERED: INSULIN LANTUS (GLARGINE) 1 /0.01ml (100units/ml) SC ONE (12:00)
[2019-02-28 12:05] LABS: BUN/Creatinine Ratio 15.8; Calcium 7.8 mg/dL (8.5-10.1); Potassium 3.5 mmol/L (3.5-5.1)
[2019-02-28] MEDS ORDERED: ASPirin 81 mg TAB PO ONE (12:30)
[2019-02-28] MEDS ORDERED: CLOPIDOGREL BISULFATE 75 MG TAB PO ONE (12:30)
[2019-02-28 16:06] VITALS: BP 150/54
== END 2019-02-28 16:15 | disposition home or self-care (01) ==
LOC: EDBD 06:15 → ER 06:15
DX: E86.0 Dehydration (principal); E11.10 Type 2 diabetes mellitus with ketoacidosis without coma; N39.0 Urinary tract infection, site not specified; D64.9 Anemia, unspecified; R79.89 Other specified abnormal findings of blood chemistry; J81.0 Acute pulmonary edema; I10 Essential (primary) hypertension; Z90.710 Acquired absence of both cervix and uterus; Z90.89 Acquired absence of other organs
CPT/HCPCS: 36415; 36600; 71045; 80048; 80053; 81001; 82010; 82805; 82962; 83735; 84484; 85025; 93005; 96361; 96365; 96366; 96368; 96372; 99284; J0696; J1450; J1815; J7030